=== PATIENT | male | born 2000 | race African-American/Black ===

== ENCOUNTER 2021-06-01 19:10 | Emergency (ER) | payer OTHER, SELFPAY ==
[2021-06-01] MEDS ORDERED: Orphenadrine Citrate 60 MG/2 ML VIAL IM SCH (22:15)
== END 2021-06-01 22:25 | disposition home or self-care (01) ==
LOC: ERS 19:10
DX: M54.6 Pain in thoracic spine (principal); V89.2XXA Person injured in unspecified motor-vehicle accident, traffic, initial encounter
CPT/HCPCS: 96372; 99283; J2360